=== PATIENT | female | born 1990 | race Two or more races ===

== ENCOUNTER 2024-11-27 23:02 | Emergency (ER) | payer MEDICAID, SELFPAY ==
--- NOTE | 2024-11-27 23:09 | EKG_ITS ---
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
[2024-11-27 23:15] VITALS: BP 115/71; PULSE 95; RESP 18; TEMP 37.3; O2SAT 97; BMI 25.0
--- NOTE | 2024-11-27 23:41 | XR_ITS ---
Examination: PA chest single view TECHNIQUE: Upright PA chest single view Date and time: November 27, 2024, 11:43 PM INDICATIONS: Cardiac palpitations today. FINDINGS: Normal heart size No pneumonia or pulmonary edema. The osseous structures are intact. IMPRESSION: No active disease.
--- NOTE | 2024-11-27 23:52 | PD.EDARRY ---
ED Arrhythmia Palp. RME/HPI General Chief Complaint: Arrhythmia/Palpitations Stated Complaint: Fast heart rate/chest aches a little bit Time Seen by Provider: 11/27/24 23:41 Arrival date/time: 11/27/24 23:02 34F with no significant PMH presents to ED with 3 episodes of spontaneous heart palps and dizziness in the past 3 months, most recently earlier today. Patient was sitting on bed and her HR (per smart watch) went up to the 140s. Patient denies URI symptoms. Limitations: no limitations Related Data Home Medications ?Medication ?Instructions ?Recorded ?Confirmed prenat.vits,dee,ivw-bvqa-aridp 1 tab PO QDAY 02/14/20 02/14/20 Previous Rx's ?Medication ?Instructions ?Recorded docusate sodium 100 mg capsule 100 mg PO BID #60 caps 02/16/20 (Colace) ibuprofen 800 mg tablet 800 mg PO Q6H Pain #90 tabs 02/16/20 docusate sodium 100 mg capsule 100 mg PO BID #60 caps 05/14/22 (Colace) ibuprofen 800 mg tablet 800 mg PO Q6H PRN pain #90 tabs 05/14/22 lanolin 50 % topical ointment 1 applic topical TID PRN skin 05/14/22 irritation #15 tubes Allergies Allergy/AdvReac Type Severity Reaction Status Date / Time No Known Allergies Allergy Verified 02/14/20 21:25 Review of Systems Review of Systems Systems Reviewed: All systems reviewed, normal except as documented Constitutional Constitutional: Reports system reviewed and no additional complaints, except as documented, Denies fever(s) and Denies headache(s) ENT Ears, Nose, Mouth, and Throat: Reports as per HPI, Denies disequilibrium, Denies headache(s) and Reports vertigo Cardiovascular Cardiovascular: Reports system reviewed and no additional complaints, except as documented, Reports as per HPI, Denies chest pain, Denies dyspnea and Reports palpitations Respiratory Respiratory: Reports system reviewed and no additional complaints, except as documented, Denies cough and Denies dyspnea Gastrointestinal Gastrointestinal: Reports system reviewed and no additional complaints, except as documented, Denies abdominal pain, Denies nausea and Denies vomiting Neurologic Neurologic: Reports system reviewed and no additional complaints, except as documented, Denies confusion, Denies disequilibrium, Denies headache(s) and Reports vertigo Psychiatric Psychiatric: Denies confusion Endocrine Endocrine: Reports palpitations Past Medical History Past Medical History NEUROLOGIC: Negative Neurological Disorders CARDIAC: Negative Cardiac Disorders or Congestive Heart Failure RESPIRATORY: Negative Chronic Obstructive Pulmonary Disease (COPD) GASTROINTESTINAL: Negative Gastrointestinal Disorders, Hepatitis or Colorectal Cancer GENITOURINARY: Positive Genitourinary Disorders and Renal Disease (KIDNEY INFECTION); Negative Prostate Cancer REPRODUCTIVE: Positive Genital Herpes (07/2017); Negative Breast Cancer, Endometriosis, Pelvic Inflammatory Disease, Previous Pregnancies, Testicular Cancer or Uterine Prolapse MUSCULOSKELETAL: Negative Musculoskeletal Disorders or Bone Cancer ENDOCRINE: Negative Endocrine Disorders, Diabetes Mellitus Type 1 or Diabetes Mellitus Type 2 HEMATOLOGIC: Negative Blood Disorders OTHER HISTORY: Negative Hospitalization, Autoimmune Disease, Down Syndrome, Developmental Delay, Shingles, Falls, Blood Transfusions, Blood Transfusion Reaction, Anesthesia Reactions, Organ Transplant, Chemotherapy, Radiation Therapy, Hyperbaric Therapy, MRSA, VRSA, Vancomycin-Resistant Enterococci, Human Immunodeficiency Virus (HIV), Chicken Pox, Measles, Mumps, Rubella (Ukrainian Measles), Pertussis, Clostridium Difficile, Cancer, Breast Cancer, Cervical Cancer, Colorectal Cancer, Lung Cancer, Ovarian Cancer, Prostate Cancer or Testicular Cancer Family History FAMILY HISTORY: Negative Family Psychiatric Problems, Family Respiratory Disorders, Family Cardiac Disorders, Family Gastrointestinal Problems, Family Cancer, Family Surgery or Family Anesthesia Reaction Surgical History SURGICAL: Negative Endocrine Surgery, Ear Surgery, Abdominal Surgery, Nephrectomy, Joint Replacement, Neurologic Surgery, Brain Shunt, Section or Organ Transplant Social History SMOKING STATUS: Never smoker ED Exam General Limitations: Present no limitations General appearance: Present alert and in no apparent distress Head Head exam: Present atraumatic Eye Eye exam: Present normal appearance, PERRL and EOMI ENT ENT exam: Present normal exam, normal oropharynx and mucous membranes moist Neck Neck exam: Present normal inspection, full ROM and trachea midline Chest Chest inspection: Present normal inspection and symmetric chest wall rise Respiratory Respiratory exam: Present normal lung sounds bilaterally Cardiovascular Cardiovascular exam: Present regular rate, normal rhythm and normal heart sounds Abdominal Exam Abdominal exam: Present soft and normal bowel sounds Extremities Exam Extremities exam: Present normal inspection and full ROM Back Exam Back exam: Present normal inspection and full ROM Neurological Exam Neurological exam: Present alert, oriented X3 and CN II-XII intact Psychiatric Psychiatric exam: Present normal affect and normal mood Skin Skin exam: Present warm, dry, intact and normal color Course Quality Measures none Orders Category Date Time Status [employer] Q4H START 00 Care 11/27/24 23:43 Active EKG (ED ONLY) *Do not use* NOW Care 11/27/24 23:09 Completed EKG (ED Only) Stat Exams 11/27/24 23:09 Draft XR chest 1V portable Stat Exams 11/27/24 23:41 Taken CBC Stat Lab 11/27/24 23:50 Ordered CMP [Comprehensive Metabolic Panel] Stat Lab 11/27/24 23:50 Ordered D-Dimer Stat Lab 11/27/24 23:50 Ordered Troponin I Stat Lab 11/27/24 23:50 Ordered Vital Signs Vital signs: Vital Signs Temperature 99.2 F 11/27/24 23:15 Pulse Rate 95 11/27/24 23:15 Respiratory Rate 18 11/27/24 23:15 Blood Pressure 115/71 11/27/24 23:15 Pulse Oximetry (%) 97 11/27/24 23:15 Oxygen Delivery Method Room Air 11/27/24 23:15 Arrhythmia/Palpitations MDM Narrative MDM Narrative:: 34F with no significant PMH presents to ED with 3 episodes of spontaneous heart palps and dizziness in the past 3 months, most recently earlier today. Patient was sitting on bed and her HR (per smart watch) went up to the 140s. Patient denies URI symptoms. Physical exam reveals lungs and RRR. Normal WOB. Patient is afebrile, calm, and alert. EKG is NSR. Unremarkable CXR. No leukocytosis or anemia. CMP unremarkable. TSH normal. Trop and D-dimer normal. No cardiac arrhythmias after several hours of observation. Patient data External records reviewed:: [facility] previous records Clinical information provided by:: patient Social determinants that could affect healthcare access:: none Patient has the following chronic illnesses:: none How is presenting disease/condition affected by chronic disease/condition?: no chronic disease Evaluation data The following diagnostics were reviewed and interpreted by me:: lab results, radiology exam(s) and EKG tracing(s) Lab and/or radiology exams considered but not ordered:: ordered Interpretation Summary: above Medications / Prescriptions Medications or Prescriptions considered but not ordered:: not ordered Medication administrations:: n/a Consultations Consultation(s) initiated? (list below): No Diagnosis Differential diagnosis arrhythmia/palpitations: palpitations, anxiety, sinus tachycardia, artial fibrillation, artial flutter, ventricular premature beats, supraventricular tachycardia, ventricular tachycardia, WPW and other (PE) Most likely diagnosis given after review of the tests above:: palpitations Admission Indicated Admission indicated?: not indicated Admission Request Was there a request for admission?: No Disposition Plan Disposition Plan: Discharge Discharge Attestation Discharge Attestation: The patient and all family members were given an opportunity to ask questions and understood the discharge instructions. Discharge instructions specifically effects, indications for sooner follow up or return to the emergency department, and the expected course of current diagnosis. Patient condition: Stable Discharge Plan Plan Patient Disposition: HOME (Self Care) Discharge Disposition comment: Stable Prescriptions/Referrals Prescriptions/Med Rec: No Action prenat.vits,dee,rav-filk-bwbed Tablet 1 tab PO QDAY docusate sodium [Colace] 100 mg capsule 100 mg PO BID Qty: 60 0RF ibuprofen 800 mg tablet 800 mg PO Q6H MDD 4 Qty: 90 0RF ibuprofen 800 mg tablet 800 mg PO Q6H MDD 4 PRN (Reason: pain) Qty: 90 0RF docusate sodium [Colace] 100 mg capsule 100 mg PO BID Qty: 60 0RF lanolin 50 % ointment 1 applic topical TID PRN (Reason: skin irritation) Qty: 15 0RF Referrals: Kodak Riley MD [Primary Care Provider] - In 1 week Problem List Clinical Impression: Palpitations Patient/Caregiver Discharge Instructions Education Materials: ED Palpitations Additional Instructions: Please follow-up with PCP within 24-48 hours and return immediately if symptoms worsen. Can see PCP for additional evaluation including possible referral to Cards for Holter monitor. Print Language: Bahraini Stand Alone Forms: Patient Portal Info Letter MARIANO/LISE Supervising Physician CANDIDO Supervising Physician: Dr. Pickett
[2024-11-28 00:12] LABS: Basophils # (Auto) 0.0 Thou/mm3 (0.0-0.2); Basophils % (Auto) 0 % (0-2.5); Eosinophils # (Auto) 0.1 Thou/mm3 (0.0-0.5); Eosinophils % (Auto) 1 % (0-10); Hematocrit 39.2 % (36.0-46.0); Hemoglobin 13.2 g/dL (12.0-16.0); Immature Granulocytes Auto 0.03 Thou/mm3 (0.00-0.00); Lymphocytes # (Auto) 1.3 Thou/mm3 (1.0-4.8); Lymphocytes % (Auto) 17 % (10-50); Mean Corpuscular HGB Conc 33.7 g/dl (31.0-37.0); Mean Corpuscular Hemoglobin 29.8 pg (25.0-35.0); Mean Corpuscular Volume 89 fL (80-100); Monocytes # (Auto) 0.6 Thou/mm3 (0.0-0.8); Monocytes % (Auto) 8 % (0-12); Neutrophils # (Auto) 5.5 Thou/mm3 (1.8-7.7); Neutrophils % (Auto) 74 % (37-80); Nucleated Red Blood Cell # 0.00 Thou/mm3 (0.00-0.00); Nucleated Red Blood Cell % 0 /100 WBC (0); Platelet Count 234 Thou/mm3 (140-440); RDW Standard Deviation 38.5 fL (36.4-46.3); Red Blood Count 4.43 Miln/mm3 (4.00-5.20); White Blood Count 7.5 Thou/mm3 (3.6-11.0)
[2024-11-28 00:16] VITALS: PULSE 89
[2024-11-28 00:29] LABS: D-Dimer < 250 ng/mL (<600)
[2024-11-28 01:02] LABS: Alanine Aminotransferase 17 U/L (10-49); Albumin, Serum 4.6 gm/dL (3.5-5.0); Albumin/Globulin Ratio 1.6 (1.2-2.2); Alkaline Phosphatase 93 U/L (46-116); Anion Gap 9 (7-16); Aspartate Amino Transferase 28 U/L (0-34); BUN/Creatinine Ratio 10 Ratio (12-20); Bilirubin,Total 0.2 mg/dL (0.3-1.2); Blood Urea Nitrogen 9 mg/dL (9-23); Calcium 9.7 mg/dL (8.3-10.6); Calcium (Corrected) 9.7 mg/dL (8.5-10.1); Carbon Dioxide 27.4 mMol/L (20.0-31.0); Chloride 107 mMol/L (98-107); Creatinine (Component) 0.9 mg/dL (0.6-1.3); Estimated Creatinine Clearance 74.6 mL/min (>60); Globulin 2.8 gm/dL (2.3-3.5); Glucose 95 mg/dL (74-106); Osmolality,Calculated 283 (275-295); Potassium 3.8 mMol/L (3.4-5.1); Sodium 143 mMol/L (136-145); Total Protein 7.4 gm/dL (5.7-8.2); Troponin I < 0.002 ng/mL (0.0-0.045); eGFR > 60 See Note
[2024-11-28 01:18] LABS: Thyroid Stimulating Hormone 0.86 uIU/mL (0.55-4.78)
[2024-11-28 01:57] VITALS: PULSE 90; RESP 18; O2SAT 97
== END 2024-11-28 01:59 | disposition home or self-care (01) ==
PROVIDERS: Physician Assistant; Emergency Provider Emergency Medicine; PCP Internal Medicine
DX: R00.2 Palpitations (principal)
CPT/HCPCS: 36415; 71045; 80053; 84443; 84484; 85025; 85379; 93005; 99282

== ENCOUNTER 2025-03-20 15:23 | Outpatient (AMB) | payer MEDICAID, SELFPAY ==
--- NOTE | 2025-03-20 15:33 | OBCLNT_ITS ---
Vital Signs 03/20/25 15:34 Height 1.55 m Height Method Stated Weight 56.245 kg Weight Measurement Method Standing Scale BMI 23.4 BP 98/63 Blood Pressure Source Automatic Cuff Blood Pressure Location Right Upper Arm Position Sitting Respiration 18 Pulse 94 Pulse Source Monitor Temp 97.4 F Temp Source Temporal Artery Scan Pulse Oximetry (%) 99 Oxygen Delivery Method Room Air Allergies/Home Meds Allergies & Medications Allergies No Known Allergies Allergy (Verified 03/21/25 08:21) Medication Reconciliation prenat.vits,dee,gfl-wirj-blshr 1 tab PO QDAY 02/14/20 [History Confirmed 03/21] nitrofurantoin monohydrate/macrocrystals 100 mg capsule (Macrobid) 100 mg PO BID 7 days #14 caps 03/20/25 [Rx Confirmed 03/21/25] Immunizations Immunizations Flu Vaccine in the Last 12 Months: No Flu Vaccine Exclusion Criteria: Refused by Patient Care OB Visit Log OB Flowsheet Initial Weight: Not Recorded Date -?-?-?-?-?-?--?-?-?-?-?-?- EGA Weight BP Alb Glu CTX Pres Fundal ht FHR Mov Dilation Station Effacement Hx Notes Visit Note 02/14/25 -?-?-?-?-?-?-?-?-?-?-?-?- 12w 0d 56.699 kg 108/70 absent unknown 12 125 absent 34-year-old 3 para 2 for OBI. Last. November 22, 2024. Estimated due date August 29, 2025. Increased nausea and vomiting. No other discomforts. Patient denies SAB complaints. Denies movement. Previous history of palpitations in November but she has no palpitations OB p gautam today with A1c and NIPT and carrier screen. Schedule anatomy scan with M. Discussed SAB precautions. Continue prenatals. Return in 4 weeks OB check 03/20/25 -?-?-?-?-?-?-?-?-?-?-?-?- 16w 6d 56.245 kg 98/63 absent unknown 16 135 absent Tolerated expect light movement. Denies SAB signs or symptoms. Patient had positive UTI on her OB panel so we will treat that with Keflex 500 p.o. twice daily Keflex 500 p.o. twice daily x 7. aFP today. Patient has an appointment at [facility] April 17 for ultrasound. SAB precautions macrobid p.o. twice daily x 7. aFP today. Patient has an appointment at [facility] April 17 for ultrasound. SAB precautions ZANA Calculator Estimated Delivery Date Method Current WG Current Estimate 08/29/25 LMP (Uncertain) 17w 0d Notes Visit Date: 03/20/25 Last Updated by: Zena العلي CNM O+,abs-,rpr;;nr, rub imm, hbsag-,HIV-,HC-, GC/CT-, , _+UA ecoli: +nitrites, NIPT-/male, carrier screen- Visit Date: 02/14/25 Last Updated by: Zena العلي CNM 34 yo . lmp 11/22/24, EDC: 08/29/25 Office Procedures [facility] LOC & Office Proc's Nursing/Assessment Patient Status: Established Patient OB Clinic Nursing Assessment: Medication Reconciliation, Update PMH in EMR and Vital Signs OB Clinic Coordination of Care: Complex Care and Chronic Disease 1-5, Education Complex Pt/Fam, Consent,records obtained, informed consent, Lab and Imaging orders, Results/Orders obtained and Staff clarify orders Special Needs: Heart tones Established Patient Charge Established Patient Point Assignment: 140 Established Patient Point Charge: EP Level 4 (120-155) Assessment & Plan Diagnosis / Problem List (1) Encounter for supervision of high risk in second trimester, antepartum: Status: Acute Plan Macrobid 100 p.o. twice daily x 7 days. Increase fluids. Comfort measures for UTI. aFP today. Patient has follow-up ultrasound April 17 with [facility] and return in 4 weeks OB check Additional Plan Follow Up: 4 Weeks (obc)
[2025-03-20 15:34] VITALS: BP 98/63; PULSE 94; RESP 18; TEMP 36.3; O2SAT 99; BMI 23.4
== END 2025-03-20 16:13 | disposition home or self-care (01) ==
PROVIDERS: Supervising Provider Advanced Practice Midwife; Visit Provider Advanced Practice Midwife
DX: O09.892 Supervision of other high risk pregnancies, second trimester (principal); O23.42 Unspecified infection of urinary tract in pregnancy, second trimester; Z3A.16 16 weeks gestation of pregnancy; Z28.21 Immunization not carried out because of patient refusal
CPT/HCPCS: 99214; G0463